=== PATIENT | male | born 1985 | race Caucasian/White ===

== ENCOUNTER 2025-08-14 19:49 | Inpatient (IN) | payer OTHER, SELFPAY ==
[2025-08-14 20:00] VITALS: BP 169/100; PULSE 98; RESP 16; TEMP 36.9; O2SAT 99
[2025-08-14 20:49] VITALS: BP 169/100
[2025-08-14 21:31] VITALS: BMI 32.2
--- OUTSIDE RECORDS SUMMARY | 2025-08-14 22:42 | XMS_ITS | Encounter Summary ---
Author Organization [facility] Address [address] [place] [address] Care Team Providers Care Derrick Boat Leverman Name Role Phone Mayte Wright Primary Care Provider [phone] Encounter Details Date Type Department Care Team (Late st Contact Info) Description 01/05/2024 Community Orders [facility] Epic[facility] Link [address] [place] [address] Mayra Gonzalez MD [address] [place] [address] Decreased visual acuity (Primary Dx) Social History Tobacco Use Types Packs/Day Years Used Date Smoking Tobacco: Every Day Cigarettes Smokeless Tobacco: Never Alcohol Use Standard Drinks/Week Comments Not Currently 0 (1 standard drink = 0.6 oz pur e alcohol) Sex and Gender Information Value Date Recorded Sex Assigned at Not on file Legal Sex Male 11:37 PM EDT Gender Identity Not on file Sexual Orientation Not on file documented as of this encounter Plan of Treatment Not on file documented as of this encounter Visit Diagnoses Diagnosis Decreased visual acuity- Primary documented in this encounter Care Teams Derrick Boat Leverman Relationship Specialty Start Date End Date Mayte Wright [address] [place] [address] PCP - General 07/13/22 documented as of this encounter
--- OUTSIDE RECORDS SUMMARY | 2025-08-14 22:42 | XMS_ITS | Clinical Summary ---
Author Organization [facility] Address [address] [place] [address] Care Team Providers Care Bike Designer Name Role Phone Mayte Wright Primary Care Provider [phone] Allergies Active Allergy Reactions Criticality Noted Date Comments Gabapentin Unknown 07/13/2022 Phenobarbital Unknown 07/13/2022 Sulfa (Sulfonamide Antibiotics) Unknown 06/25 Ondansetron Hcl Unknown 07/13/2022 Medications HYDROcodone-franko taminophen (NORCO) 5-325 mg tablet Take 1-2 tablets by mouth every 6 hours as needed for pain. (Note to pharmacy: Partial fill upon patient request.) 10 tablet 2 Active ALPRAZolam (XANAX) 0.5 mg tablet alprazolam 0.5 mg tablet Active cloNIDine (CATAPRES) 0.1 mg tablet SMARTSI Tablet(s) By Mouth 4 Times Daily PRN Active gabapentin (NEURONTIN) 100 mg capsule 4 Active lamoTRIgine (LaMICtal) 100 mg tablet 4 Active nicotine (NICODERM CQ) 21 mg/24 hr patch nicotine 21 mg/24 hr daily transdermal patch Active nicotine (NICODERM CQ) 14 mg/24 hr patch daily. Active LORazepam (ATIVAN) 0.5 mg tablet lorazepam 0.5 mg tablet Active QUEtiapine (SEROquel) 50 mg tablet quetiapine 50 mg tablet Active risperiDONE (RisperDAL) 0.5 mg tablet risperidone 0.5 mg tablet Active Social History Tobacco Use Types Packs/Day Years Used Date Smoking Tobacco: Every Day Cigarettes Smokeless Tobacco: Never Tobacco Cessation:Ready to Q uit: Not Asked; Counseling Given: Not Answered Alcohol Use Standard Drinks/Week Comments Not Currently 0 (1 standard drink = 0.6 oz pur e alcohol) Sex and Gender Information Value Date Recorded Sex Assigned at Not on file Legal Sex Male 11:37 PM EDT Gender Identity Not on file Sexual Orientation Not on file Last Filed Vital Signs Vital Sign Reading Time Taken Comments Blood Pressure 143/107 07/16/2022 5:16 PM EDT Pulse 131 07/16/2022 5:16 PM EDT Temperature 37 C (98.6 F) 07/16/2022 5:16 PM EDT Respiratory Rate 20 07/16/2022 5:16 PM EDT Oxygen Saturation 95% 07/16/2022 5:16 PM EDT Inhaled Oxygen Concentration - - Weight 113.4 kg (250 lb) 07/16/2022 5:16 PM EDT Height 182.9 cm (6') 07/16/2022 5:16 PM EDT Body Mass Index 33.91 07/16/2022 5:16 PM EDT Plan of Treatment Health Maintenance Due Date Last Done Comments HIV Screening 1984 Hepatitis C Screening 1984 Varicella Vaccines (1 of 2 - 13+ 2-dose series) 1997 Hepatitis B Vaccines (1 of 3 - 19+ 3-dose series) 2003 Pneumococcal Vaccine: Pediat lashonda (0-5 Years) and At-Risk Patients (6-50 Years) (1 of 2 - PCV) 2003 DTaP,Tdap,and Td Vaccines (2 - Td or Tdap) 08/13/2024 08/13/2014 Alcohol/Substance Use Screening 10/24/2024 Depression Screening and Follow-Up 10/24/2024 Social Drivers of Health Annual Screening 10/24/2024 COVID-19 Vaccine (2 - 2024- season) 06/24/202505/2021 Influenza Vaccine (#1) 2025 09/21/2017, 2013 RSV Vaccine (60+ years old a nd patients) (1 - 1-dose 75+ series) 2059 Insurance [facility] MEDICA[employer] Care Teams Bike Designer Relationship Specialty Start Date End Date Mayte Wright [address] [place] [id number] PCP - General 07/13/22
--- NOTE | 2025-08-15 01:18 | PC.NURSE ---
Pt is a 40-y/o male with a history of polysubstance-use disorder, seizure disorder, chronic eczema, ADHD, IBS, GERD, chronic HCV infection, and priapism, who was admitted to M3 from [facility] at 20:00 on a CV. Precipitants of this admission include having passive SI with no plan or intent. Initially presented to the ED after having a 24hr + penile erection ( priapism ) and was subsequently admitted for shunt surgery. Later on pt reported vague SI and was found to be IPLOC. Some stressors include recent brief recurrence on cocaine and fentanyl and housing issues as he currently lives with a roommate, but would rather be living with his fiance. Pt recently got back together with the fiance and it has been tough as pt states she uses drugs and doesn't get along with his mom. Pt on 130mg methadone which he obtains from [facility] in [place]. 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 Skin check completed and found bilateral psoriasis/eczema in bilateral elbows and knees, as well as on face. Utox (+) fentanyl, cocaine & methadone (prescribed). Pt denies SI/HI/AH/VH currently and states he feels safe on the unit. He stated he has had one incident of self harm via cutting his wrists in the past but is able to maintain safe behaviors while in the hospital. He declined the flu vaccine and declined meeting with the ACS team as he does not believe he needs to despite his recent recurrence. He has several medication allergies. Per N2N pt received 2mg dilaudid for pain PO @17:37 ON 08/14/2025 for c/o pain at surgical site. He continues to c/o pain and T.O order for Tylenol 975mg were entered per psychiatrist EL. BP was elevated 160/100, hospitalist notified and new order for PRN 0.5 clonidine if SBP >160 entered & administered with good effect.
--- NOTE | 2025-08-15 01:54 | PC.ADMIT ---
Addendum entered by Marcelle Barrios RN 08/15/25 02:47: 0.1 mg Clonidine (not 0.5) ordered & administered with good effect. New BP 115/59. Addendum entered by Marcelle Barrios RN 08/15/25 01:56: Last methadone dose was on 08/12/2025 - 130mg per [facility] documentation. Original Note: Pt is a 40-y/o male with a history of polysubstance-use disorder, seizure disorder, chronic eczema, ADHD, IBS, GERD, chronic HCV infection, and priapism, who was admitted to M3 from [facility] at 20:00 on a CV. Precipitants of this admission include having passive SI with no plan or intent. Initially presented to the ED after having a 24hr + penile erection ( priapism ) and was subsequently admitted for shunt surgery. Later on pt reported vague SI and was found to be IPLOC. Some stressors include recent brief recurrence on cocaine and fentanyl and housing issues as he currently lives with a roommate, but would rather be living with his fiance. Pt recently got back together with the fiance and it has been tough as pt states she uses drugs and doesn't get along with his mom. Pt on 130mg methadone which he obtains from [facility] in [place]. 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 Skin check completed and found bilateral psoriasis/eczema in bilateral elbows and knees, as well as on face. Utox (+) fentanyl, cocaine & methadone (prescribed). Pt denies SI/HI/AH/VH currently and states he feels safe on the unit. He stated he has had one incident of self harm via cutting his wrists in the past but is able to maintain safe behaviors while in the hospital. He declined the flu vaccine and declined meeting with the ACS team as he does not believe he needs to despite his recent recurrence. He has several medication allergies. Per N2N pt received 2mg dilaudid for pain PO @17:37 ON 08/14/2025 for c/o pain at surgical site. He continues to c/o pain and T.O order for Tylenol 975mg were entered per psychiatrist EL. BP was elevated 160/100, hospitalist notified and new order for PRN 0.5 clonidine if SBP >160 entered & administered with good effect.
[2025-08-15 02:39] VITALS: BP 115/59
--- NOTE | 2025-08-15 06:30 | HE.PHANOTE ---
RE METHADONE Patients methadone verification form has been received by pharmacy. Patient has been confirmed to have 130 mg of methadone daily. Patient is dosed with [facility] [phone], information confirmed by Emily CROW. Last dose was 130 mg on 08/12/25
[2025-08-15 07:00] VITALS: BMI 34.7
[2025-08-15] MEDS: methADONE HCl 20 MG/2 ML ORAL.CONC 130 MG PO (08:04)
[2025-08-15 08:15] VITALS: BP 150/85; PULSE 65; RESP 20; TEMP 36.7; O2SAT 98
--- NOTE | 2025-08-15 08:21 | HO.PM.IMCN ---
History of Present Illness Data of Consult Service Date: 08/15/25 Primary Care Provider: Mayte Soliz MD [facility] Reason for consult: Medical consult 40-year-old male with past medical history of polysubstance use disorder on methadone, cocaine use disorder, depression, eczema, ADHD, GERD presented to the ED with priapism and was admitted for surgical treatment. Subsequently expressed suicide ideation and was found by crisis and deemed to be appropriate for admission. His U tox was positive for methadone, fentanyl and cocaine, BAL negative. On exam patient reports that he has no medical concerns. Patient reports that he was initially admitted for priapism, had an episode of priapism 1 month prior, this episode he waited to come to the emergency room and required OR intervention. He declined a piece dyeing machine tender for examination, on examination, tip of penis is noted to have 2 healing incisions without evidence of infection, with moderate amount of bruising at base of penis. No drainage, no warmth, no evidence of infection. He otherwise feels well without any complaints. Review of Systems Review of Systems: Denies any shortness of breath, chest pain, headaches, dysuria, abdominal pain or discomfort, nausea, vomiting or diarrhea. Denies fever or chills. PMFSH Social History Household Members: Other Household Members Other:: roommate Housing: Apartment Do you presently have visiting nurse or other home services: No Patient Tobacco Use Status: Current everyday Tobacco user Tobacco use type: Cigarette Cigarette Packs Per Day: 0.5 Cigarettes Per Day: 10.0 Years Smoked: 10 Smoked in Last 30 Days: Yes Frequency of e-Cigarette/Vaping Use: daily Patient Interested in Nicotine Replacement: Yes Patient Given Instructions on How to Stop Smoking: Yes Date Education Initiated: 08/14/25 Second Hand Smoke Exposure: No Currently Displaying Signs/Symptoms of Drug Intoxication Withdrawal: No Have you been hit, kicked, punched, or otherwise hurt by someone within the past year? If so, by whom?: No Do you feel safe in your current relationship?: Yes Is there a partner from a previous relationship who is making you feel unsafe now?: No Are you made to feel afraid or neglected: No Spiritual Healthcare Practices: denies Denominational Healthcare Practices: denies Cultural Healthcare Practices: denies Advance Directives: No Advance Directives Information Provided: Yes Do you have thoughts of harming others: None Do you have a plan to hurt others: No Plan Recently lost weight without trying: No How much weight loss: Not applicable Eating poorly because of decreased appetite: No Nutrition screen score: 0 Nutrition Risks: No Nutritional Risk Poor oral hygiene: No service: No Sexual orientation: Straight/Heterosexual Meds Allergies Allergy/AdvReac Type Severity Reaction Status Date / Time lisdexamfetamine (From Allergy Unknown Verified 08/14/25 20:37 Vyvanse) ondansetron (From Zofran) Allergy Unknown Verified 08/14/25 20:37 phenobarbital Allergy Unknown Verified 08/14/25 20:37 Sulfa (Sulfonamide Allergy Unknown Verified 08/14/25 20:37 Antibiotics) vancomycin Allergy Unknown Verified 08/14/25 20:37 Active Medications: Current Medications Acetaminophen (Acetaminophen 325 Mg Tablet) 650 mg PO Q6H PRN PRN Reason: Headache/Pain, Scale 1-10 Al Hydroxide/Mg Hydroxide (Magnesium Hydrox/Alum Hydrox 30 Ml Oral.Susp) 30 ml PO Q6H PRN PRN Reason: Heartburn/Nausea Clonazepam (Clonazepam 0.5 Mg Tablet) 0.5 mg PO TID [facility] Last Admin: 08/14/25 22:26 Dose: 0.5 mg Clonidine HCl (Clonidine Hcl 0.1 Mg Tablet) 0.1 mg PO BID PRN; Protocol PRN Reason: SBP > 160 Last Admin: 08/14/25 20:49 Dose: 0.1 mg Gabapentin (Gabapentin 300 Mg Capsule) 300 mg PO TID [facility] Last Admin: 08/14/25 22:25 Dose: 300 mg Hydroxyzine HCl (Hydroxyzine Hcl 25 Mg Tablet) 25 mg PO Q6H PRN PRN Reason: mild anxiety Magnesium Hydroxide (Milk Of Magnesia 30 Ml Oral.Susp) 30 ml PO DAILY PRN PRN Reason: Constipation Methadone HCl (Methadone Hcl 20 Mg/2 Ml Oral.Conc) 130 mg PO DAILY [facility] Last Admin: 08/15/25 08:04 Dose: 130 mg Nicotine (Nicotine 21 Mg Patch.Td24) 21 mg TRANSDERMA DAILY PRN PRN Reason: smoking cessation Nicotine Polacrilex (Nicotine Polacrilex 2 Mg Gum) 4 mg BUCCAL Q2H PRN PRN Reason: Nicotine Cravings Olanzapine (Olanzapine 5 Mg Tablet) 5 mg PO TID PRN PRN Reason: agitation Quetiapine Fumarate (Quetiapine Fumarate 300 Mg Tablet) 300 mg PO BEDTIME KEV Last Admin: 08/14/25 22:26 Dose: 300 mg Trazodone HCl (Trazodone Hcl 50 Mg Tablet) 50 mg PO BEDTIME MRX1 PRN PRN Reason: Insomnia Home Medications ?Medication ?Instructions ?Recorded ?Confirmed ?Last Taken ?Type clonazepam 0.5 mg tablet (Klonopin) 0.5 mg PO TID 08/14/25 08/14/25 08/14/25 14:00 History 0.5 dextroamphetamine-amphetamine 30 1 tab PO BID 08/14/25 08/14/25 08/12/25 08:00 History mg tablet gabapentin 300 mg capsule 300 mg PO TID 08/14/25 08/14/25 08/14/25 14:00 History quetiapine 300 mg tablet 300 mg PO BEDTIME 08/14/25 08/14/25 08/13/25 21:00 History methadone 130 mg PO DAILY 08/15/25 08/15/25 08/12/25 07:00 History 130 mg Physical Exam Vital Signs and Narrative: Vital Signs: Last Vital Signs Temp 98.5 F 08/14/25 20:00 Pulse 98 08/14/25 20:00 Resp 16 08/14/25 20:00 BP 115/59 L 08/15/25 02:39 Pulse Ox 99 08/14/25 20:00 O2 Del Method Room Air 08/14/25 20:00 BMI result Body Mass Index 32.2 Alert and oriented X3, able to give good history. Neuro: CN II-X11 intact, no deficits, visual acuity intact EYES: PERRLA, EOM intact ENT: Hearing intact, MMM. Cardiac: S1 S2 RRR, No ectopy Pulmonary: lungs clear to auscultation, No increased WOB. Abdominal: BS active in all 4 quadrants, no guarding or tenderness MSK: Strength 5/5 upper and lower extremities : Moderate amount of bruising at base of penis, 2 incisions to the right lateral tip of penis and 1 injection site at left lateral tip. No evidence of infection. Extremities: No edema in lower extremities, PT and DP pulses palpable +2 Psych: Mood stable, calm and cooperative. Skin: Warm and dry, Intact Results Labs 08/15/25 07:59 Assessment and Plan (1) Priapism: Status: Acute Plan 40-year-old male with past medical history as listed below admitted to inpatient psych for further care after expressing suicidal ideation. Patient initially presented to the ED with priapism which was treated. Polysubstance use disorder on methadone, cocaine use disorder, depression, ADHD Treatment per psychiatric team Eczema Patient uses [id number] hydrocortisone Priaprism Required surgical intervention Educated patient regarding signs and symptoms to report that may indicate infection. GERD Stable no symptoms Thank you for allowing me to participate in the care of this patient. Will follow with you, please notify medical provider with any changes in condition or concerns.
[2025-08-15 08:22] LABS: Total Hemoglobin (HGBA1C) 3378.6498 umol/L
[2025-08-15 08:29] LABS: Alanine Aminotransferase 26 U/L (0-40); Albumin Level 3.9 g/dL (3.5-5.0); Alkaline Phosphatase 47 U/L (39-117); Anion Gap 11 (12-20); Aspartate Amino Transferase 22 U/L (5-37); Blood Urea Nitrogen 8 mg/dL (9-16); Calcium 8.6 mg/dL (8.4-10.2); Carbon Dioxide 30 mmol/L (22-29); Chloride 107 mmol/L (96-108); Cholesterol 123 mg/dL (<200); Creatinine Clr Calc Pharmacy 189.2; Estimated Glomerular Filt Rate > 60; HDL Cholesterol 35 mg/dL (>40); Potassium 4.1 mmol/L (3.3-5.1); Sodium 144 mmol/L (135-145); Total Protein 6.3 g/dL (6.5-8.0); Triglycerides 82 mg/dL (<150)
--- NOTE | 2025-08-15 09:44 | HO.PSYADMNOT ---
HPI Date of Service: 08/15/25 Chief Complaint: depression, unspecified Sources of Information: patient interviewed, chart reviewed and crisis/core team assessment reviewed HPI Subjective Notes: [place] Warning and Conditional Voluntary Narrative: Patient is a 40 year old male with hx of MDD, cocaine use d/o, opioid use d/o, who self presented to ER due to priapism and was admitted for surgical treatment. When medically cleared, patient expressed suicidal ideation and increased depression secondary to life stressors. Per crisis report, self-reported history of bipolar disorder. Patient presented to ER with priapism, admitted for surgical treatment. Patient reports suicidal ideation without plan. He reported several stressors that led to current presentation including relationship difficulties, housing stress, relapsed and medical difficulties. Patient report increased depression after getting in contact with his ex-fiance; Over the last 5 days depression has worsened to the point he was unable to get out of bed. Due to his depression, he waited 24 hours before going to hospital for his priapism. patient reports he uses cocaine when feeling depressed. He describes his manic episodes as being up for several days feeling exhausted body passes out . He states it is not related to cocaine use because the amount he uses is too small of an amount . History of self-harming via cutting. denies hx of SA. History of inpatient psychiatric hospitalizations. Utox positive for methadone, fentanyl and cocaine. During admission assessment, patient presents alert and oriented x3. Calm and cooperative. Patient reports feeling depressed; patient stated, I had priapism and did not go to the ER right away. I waited 20 hours before going. I told them I was depressed and just lying in bed. I'm going through stuff with my fiancee and my sister tried to commit suicide 2 weeks ago . Patient reports he has not been taking Prozac and Lamictal for the last year. Patient stated, it has been over a year since I came off of it. It used to be helpful . Patient currently denies SI/HI/VH/AH. Patient reports that he would like to be restarted on Prozac and Lamictal. Past Psychiatric History: History of multiple inpatient psychiatric hospitalizations. History of SIB via cutting Denies history of SA. Prescriber: Kamaljit Smith ([place]) Therapist: Shannan Knott at methadone clinic Medical Evaluation Reviewed: Yes PMFSH Family History: depression Social History: Lives with friend. Engaged. 10 year old daughter who lives with biological mother. 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 Substance History: hx of opioid use. Patient reports using cocaine. Trauma History: yes Diagnostics Vital Signs (24Hr): Vital Signs - 24 hr 08/14/25 20:00 08/14/25 20:49 08/15/25 02:39 Temperature 98.5 F Pulse Rate 98 Respiratory Rate 16 Blood Pressure 169/100 H 169/100 H 115/59 L Pulse Oximetry 99 Oxygen Delivery Method Room Air BMI result Body Mass Index 32.2 Labs 08/15/25 07:59 Labs: Laboratory Results - last 48 hr 08/15/25 07:59 Sodium 144 Potassium 4.1 Chloride 107 Carbon Dioxide 30 H Anion Gap 11 L BUN 8 L Creatinine 0.67 Estim Creat Clear Calc 189.2 Estimated GFR > 60 Random Glucose 93 Estimat Average Glucose 117 Hemoglobin A1c % 5.7 Calcium 8.6 Total Bilirubin 0.2 AST 22 ALT 26 Alkaline Phosphatase 47 Total Protein 6.3 L Albumin 3.9 Triglycerides 82 Cholesterol 123 LDL Cholesterol, Calc 72 HDL Cholesterol 35 L TSH 2.56 Meds/Allergies Meds Home Medications ?Medication ?Instructions ?Recorded ?Confirmed ?Type clonazepam 0.5 mg tablet (Klonopin) 0.5 mg PO TID 08/14/25 08/14/25 History dextroamphetamine-amphetamine 30 1 tab PO BID 08/14/25 08/14/25 History mg tablet gabapentin 300 mg capsule 300 mg PO TID 08/14/25 08/14/25 History quetiapine 300 mg tablet 300 mg PO BEDTIME 08/14/25 08/14/25 History methadone 130 mg PO DAILY 08/15/25 08/15/25 History Allergies Allergies Allergy/AdvReac Type Severity Reaction Status Date / Time lisdexamfetamine (From Allergy Unknown Verified 08/14/25 20:37 Vyvanse) ondansetron (From Zofran) Allergy Unknown Verified 08/14/25 20:37 phenobarbital Allergy Unknown Verified 08/14/25 20:37 Sulfa (Sulfonamide Allergy Unknown Verified 08/14/25 20:37 Antibiotics) vancomycin Allergy Unknown Verified 08/14/25 20:37 Mental Status Exam Mental Status Exam Patient Appearance: Appropriate Patient Orientation: Person, Place, Time and Situation Level of Consciousness: Awake and Alert Patient Behavior: Appropriate, Cooperative and Good Eye Contact Mood Description: Calm and Depressed Affect Description: Calm Ability to Follow Directions: Good Speech Pattern: Clear Memory Description: Intact Hallucinations: None Delusions: Not Present Thought Process: Intact Thought Content: positive for Intact Assessment & Plan Assessment & Plan (1) Bipolar disorder: Status: Acute Code(s): F31.9 - Bipolar disorder, unspecified (2) Cocaine use disorder: Status: Acute Code(s): F14.10 - Cocaine abuse, uncomplicated (3) Opioid use disorder: Status: Acute Code(s): F11.90 - Opioid use, unspecified, uncomplicated Plan Patient is a 40 year old male with hx of MDD, cocaine use d/o, opioid use d/o, who self presented to ER due to priapism and was admitted for surgical treatment. When medically cleared, patient expressed suicidal ideation and increased depression secondary to life stressors. Plan: CV 15 minute safety checks Obtain collateral Continue home medications Encourage groups Discharge planning Patient educated on: diagnosis and medication risk/benefits Reason for continued inpatient stay Substantial Risk for: med/psych decompensation Statement Statement: I have reviewed the history and physical and performed a pertinent examination on my patient. No changes have occurred unless specified. If the History and Physical was not performed prior to admission, the Hospitalist's service will be consulted for completing the admission physical. Time Spent With Patient Time: Total time managing care of this patient today _60___ minutes.
[2025-08-15] MEDS: Amphetamine Mixed Salts 20 MG TABLET 30 MG PO (14:14)
[2025-08-15 19:30] VITALS: BP 159/74; PULSE 82; RESP 16; TEMP 36.2; O2SAT 97
[2025-08-15 20:25] VITALS: BP 175/101
[2025-08-15] MEDS: Hydrocortisone 1 % Cream 28.35 GM TUBE 1 APPL TOPICAL (20:26)
[2025-08-16 07:34] VITALS: BP 132/80; PULSE 69; RESP 18; TEMP 36.7; O2SAT 99
[2025-08-16] MEDS: Amphetamine Mixed Salts 20 MG TABLET 30 MG PO ×2 (08:08→14:08)
[2025-08-16] MEDS: methADONE HCl 20 MG/2 ML ORAL.CONC 130 MG PO (08:08)
--- NOTE | 2025-08-16 09:30 | P.PNPSI_ITS ---
Subjective Subjective Date of Service: 08/16/25 Reason For Visit: depression, unspecified Subjective Notes: Conditional Voluntary Interim History: Active on unit. Feeling anxious and depressed; pt stated, I have a lot going on with my ex. I just need to focus on myself . denies SI/HI/VH/AH. attending groups. per nursing, slept 7 hours. denies side effects from starting Lamictal. continue tx plan. Medication Compliance: Yes Side effects from medications: No Attending Groups: Yes Mental Status Exam Mental Status Exam Narrative: Pt is alert and oriented; behavior is cooperative and calm; dressed in casual attire; mood is described as depressed ; eye contact appropriate; Speech is normal rate, volume and not pressured; thought process is organized; Thought content is on tx; denies SI/HI/VH/AH. Diagnostics Vital Signs (24Hr): Vital Signs - 24 hr 08/15/25 19:30 08/15/25 20:25 08/16/25 07:34 Temperature 97.2 F 98.0 F Pulse Rate 82 69 Respiratory Rate 16 18 Blood Pressure 159/74 H 175/101 H 132/80 Pulse Oximetry 97 99 Oxygen Delivery Method Room Air Room Air BMI result Body Mass Index 34.7 Labs 08/15/25 07:59 Labs: Laboratory Results - last 48 hr 08/15/25 07:59 Sodium 144 Potassium 4.1 Chloride 107 Carbon Dioxide 30 H Anion Gap 11 L BUN 8 L Creatinine 0.67 Estim Creat Clear Calc 189.2 Estimated GFR > 60 Random Glucose 93 Estimat Average Glucose 117 Hemoglobin A1c % 5.7 Calcium 8.6 Total Bilirubin 0.2 AST 22 ALT 26 Alkaline Phosphatase 47 Total Protein 6.3 L Albumin 3.9 Triglycerides 82 Cholesterol 123 LDL Cholesterol, Calc 72 HDL Cholesterol 35 L TSH 2.56 Medications Medications Current Medications Acetaminophen (Acetaminophen 325 Mg Tablet) 650 mg PO Q6H PRN PRN Reason: Headache/Pain, Scale 1-10 Last Admin: 08/15/25 20:21 Dose: 650 mg Al Hydroxide/Mg Hydroxide (Magnesium Hydrox/Alum Hydrox 30 Ml Oral.Susp) 30 ml PO Q6H PRN PRN Reason: Heartburn/Nausea Amphetamine/Dextroamphetamine (Amphetamine Mixed Salts 20 Mg Tablet) 30 mg PO BID@0800,1400 [facility] Last Admin: 08/16/25 08:08 Dose: 30 mg Clonazepam (Clonazepam 0.5 Mg Tablet) 0.5 mg PO TID [facility] Last Admin: 08/16/25 08:08 Dose: 0.5 mg Clonidine HCl (Clonidine Hcl 0.1 Mg Tablet) 0.1 mg PO BID PRN; Protocol PRN Reason: SBP > 160 Last Admin: 08/15/25 20:25 Dose: 0.1 mg Gabapentin (Gabapentin 300 Mg Capsule) 300 mg PO TID [facility] Last Admin: 08/16/25 08:08 Dose: 300 mg Hydrocortisone (Hydrocortisone 1 % Cream 28.35 Gm Tube) 1 appl TOPICAL BID PRN; Protocol PRN Reason: Rash Last Admin: 08/15/25 20:26 Dose: 1 appl Hydroxyzine HCl (Hydroxyzine Hcl 25 Mg Tablet) 25 mg PO Q6H PRN PRN Reason: mild anxiety Ibuprofen (Ibuprofen 600 Mg Tablet) 600 mg PO Q8H PRN PRN Reason: Pain, Moderate(Pain Scale 4-6) Last Admin: 08/15/25 16:42 Dose: 600 mg Lamotrigine (Lamotrigine 25 Mg Tablet) 25 mg PO BEDTIME [facility] Last Admin: 08/15/25 20:21 Dose: 25 mg Magnesium Hydroxide (Milk Of Magnesia 30 Ml Oral.Susp) 30 ml PO DAILY PRN PRN Reason: Constipation Methadone HCl (Methadone Hcl 20 Mg/2 Ml Oral.Conc) 130 mg PO DAILY [facility] Last Admin: 08/16/25 08:08 Dose: 130 mg Nicotine (Nicotine 21 Mg Patch.Td24) 21 mg TRANSDERMA DAILY PRN PRN Reason: smoking cessation Nicotine Polacrilex (Nicotine Polacrilex 2 Mg Gum) 4 mg BUCCAL Q2H PRN PRN Reason: Nicotine Cravings Olanzapine (Olanzapine 5 Mg Tablet) 5 mg PO TID PRN PRN Reason: agitation Last Admin: 08/15/25 20:21 Dose: 5 mg Quetiapine Fumarate (Quetiapine Fumarate 300 Mg Tablet) 300 mg PO BEDTIME [facility] Last Admin: 08/15/25 20:21 Dose: 300 mg Trazodone HCl (Trazodone Hcl 50 Mg Tablet) 50 mg PO BEDTIME MRX1 PRN PRN Reason: Insomnia Allergies Allergies Allergy/AdvReac Type Severity Reaction Status Date / Time lisdexamfetamine (From Allergy Unknown Verified 08/14/25 20:37 Vyvanse) ondansetron (From Zofran) Allergy Unknown Verified 08/14/25 20:37 phenobarbital Allergy Unknown Verified 08/14/25 20:37 Sulfa (Sulfonamide Allergy Unknown Verified 08/14/25 20:37 Antibiotics) vancomycin Allergy Unknown Verified 08/14/25 20:37 Assessment & Plan Assessment & Plan (1) Bipolar disorder: Status: Acute Code(s): F31.9 - Bipolar disorder, unspecified (2) Cocaine use disorder: Status: Acute Code(s): F14.10 - Cocaine abuse, uncomplicated (3) Opioid use disorder: Status: Acute Code(s): F11.90 - Opioid use, unspecified, uncomplicated Plan Patient is a 40 year old male with hx of MDD, cocaine use d/o, opioid use d/o, who self presented to ER due to priapism and was admitted for surgical treatment. When medically cleared, patient expressed suicidal ideation and increased depression secondary to life stressors. Plan: CV 15 minute safety checks Obtain collateral Continue home medications Encourage groups Start: lamictal 25mg PO bedtime Discharge planning 08/16: Active on unit. Feeling anxious and depressed; pt stated, I have a lot going on with my ex. I just need to focus on myself . denies SI/HI/VH/AH. attending groups. per nursing, slept 7 hours. denies side effects from starting Lamictal. continue tx plan. Patient educated on: diagnosis, medication risk/benefits and therapeutic strategies Reason for continued inpatient stay Substantial Risk for: med/psych decompensation Time Spent With Patient Time: Total time managing care of this patient today _20___ minutes.
[2025-08-16] MEDS: Hydrocortisone 1 % Cream 28.35 GM TUBE 1 APPL TOPICAL (11:08)
[2025-08-16 19:13] VITALS: BP 145/85; PULSE 87; RESP 16; TEMP 36.2; O2SAT 98
[2025-08-17] MEDS: methADONE HCl 20 MG/2 ML ORAL.CONC 130 MG PO (07:58)
[2025-08-17 08:00] VITALS: BP 125/67; PULSE 68; RESP 16; TEMP 36.8; O2SAT 97
[2025-08-17] MEDS: Amphetamine Mixed Salts 20 MG TABLET 30 MG PO ×2 (08:00→13:14)
--- NOTE | 2025-08-17 15:16 | HO.PSYCHPN ---
Subjective Subjective Date of Service: 08/17/25 Reason For Visit: depression, unspecified Subjective Notes: Conditional Voluntary Interim History: Active on unit. Patient reports he is starting to feel better ; pt stated, my depression is getting better. I'm trying to not worry about what's going on outside of here . denies SI/HI/VH/AH. continue tx plan. Medication Compliance: Yes Side effects from medications: No Attending Groups: Yes Mental Status Exam Mental Status Exam Narrative: Pt is alert and oriented; behavior is cooperative and calm; dressed in casual attire; mood is described as getting better ; eye contact appropriate; Speech is normal rate, volume and not pressured; thought process is organized; Thought content is on tx/discharge; denies SI/HI/VH/AH. Diagnostics Vital Signs (24Hr): Vital Signs - 24 hr 08/16/25 19:13 08/17/25 08:00 Temperature 97.2 F 98.2 F Pulse Rate 87 68 Respiratory Rate 16 16 Blood Pressure 145/85 H 125/67 Pulse Oximetry 98 97 Oxygen Delivery Method Room Air Room Air BMI result Body Mass Index 34.7 Labs 08/15/25 07:59 Medications Medications Current Medications Acetaminophen (Acetaminophen 325 Mg Tablet) 650 mg PO Q6H PRN PRN Reason: Headache/Pain, Scale 1-10 Last Admin: 08/15/25 20:21 Dose: 650 mg Al Hydroxide/Mg Hydroxide (Magnesium Hydrox/Alum Hydrox 30 Ml Oral.Susp) 30 ml PO Q6H PRN PRN Reason: Heartburn/Nausea Amphetamine/Dextroamphetamine (Amphetamine Mixed Salts 20 Mg Tablet) 30 mg PO BID@0800,1400 [facility] Last Admin: 08/17/25 13:14 Dose: 30 mg Clonazepam (Clonazepam 0.5 Mg Tablet) 0.5 mg PO TID [facility] Last Admin: 08/17/25 14:03 Dose: 0.5 mg Clonidine HCl (Clonidine Hcl 0.1 Mg Tablet) 0.1 mg PO BID PRN; Protocol PRN Reason: SBP > 160 Last Admin: 08/15/25 20:25 Dose: 0.1 mg Gabapentin (Gabapentin 300 Mg Capsule) 300 mg PO TID [facility] Last Admin: 08/17/25 14:03 Dose: 300 mg Hydrocortisone (Hydrocortisone 1 % Cream 28.35 Gm Tube) 1 appl TOPICAL BID PRN; Protocol PRN Reason: Rash Last Admin: 08/16/25 11:08 Dose: 1 appl Hydroxyzine HCl (Hydroxyzine Hcl 25 Mg Tablet) 25 mg PO Q6H PRN PRN Reason: mild anxiety Ibuprofen (Ibuprofen 600 Mg Tablet) 600 mg PO Q8H PRN PRN Reason: Pain, Moderate(Pain Scale 4-6) Last Admin: 08/15/25 16:42 Dose: 600 mg Lamotrigine (Lamotrigine 25 Mg Tablet) 25 mg PO BEDTIME [facility] Last Admin: 08/16/25 20:11 Dose: 25 mg Magnesium Hydroxide (Milk Of Magnesia 30 Ml Oral.Susp) 30 ml PO DAILY PRN PRN Reason: Constipation Methadone HCl (Methadone Hcl 20 Mg/2 Ml Oral.Conc) 130 mg PO DAILY [facility] Last Admin: 08/17/25 07:58 Dose: 130 mg Nicotine (Nicotine 21 Mg Patch.Td24) 21 mg TRANSDERMA DAILY PRN PRN Reason: smoking cessation Nicotine Polacrilex (Nicotine Polacrilex 2 Mg Gum) 4 mg BUCCAL Q2H PRN PRN Reason: Nicotine Cravings Last Admin: 08/17/25 14:04 Dose: 4 mg Olanzapine (Olanzapine 5 Mg Tablet) 5 mg PO TID PRN PRN Reason: agitation Last Admin: 08/17/25 14:04 Dose: 5 mg Quetiapine Fumarate (Quetiapine Fumarate 300 Mg Tablet) 300 mg PO BEDTIME [facility] Last Admin: 08/16/25 20:11 Dose: 300 mg Trazodone HCl (Trazodone Hcl 50 Mg Tablet) 50 mg PO BEDTIME MRX1 PRN PRN Reason: Insomnia Allergies Allergies Allergy/AdvReac Type Severity Reaction Status Date / Time lisdexamfetamine (From Allergy Unknown Verified 08/14/25 20:37 Vyvanse) ondansetron (From Zofran) Allergy Unknown Verified 08/14/25 20:37 phenobarbital Allergy Unknown Verified 08/14/25 20:37 Sulfa (Sulfonamide Allergy Unknown Verified 08/14/25 20:37 Antibiotics) vancomycin Allergy Unknown Verified 08/14/25 20:37 Assessment & Plan Assessment & Plan (1) Bipolar disorder: Status: Acute Code(s): F31.9 - Bipolar disorder, unspecified (2) Cocaine use disorder: Status: Acute Code(s): F14.10 - Cocaine abuse, uncomplicated (3) Opioid use disorder: Status: Acute Code(s): F11.90 - Opioid use, unspecified, uncomplicated Plan Patient is a 40 year old male with hx of MDD, cocaine use d/o, opioid use d/o, who self presented to ER due to priapism and was admitted for surgical treatment. When medically cleared, patient expressed suicidal ideation and increased depression secondary to life stressors. Plan: CV 15 minute safety checks Obtain collateral Continue home medications Encourage groups Start: lamictal 25mg PO bedtime Discharge planning 08/16: Active on unit. Feeling anxious and depressed; pt stated, I have a lot going on with my ex. I just need to focus on myself . denies SI/HI/VH/AH. attending groups. per nursing, slept 7 hours. denies side effects from starting Lamictal. continue tx plan. 08/17: Active on unit. Patient reports he is starting to feel better ; pt stated, my depression is getting better. I'm trying to not worry about what's going on outside of here . denies SI/HI/VH/AH. continue tx plan. Patient educated on: diagnosis, medication risk/benefits and therapeutic strategies Reason for continued inpatient stay Substantial Risk for: med/psych decompensation Time Spent With Patient Time: Total time managing care of this patient today _15___ minutes.
[2025-08-17 20:00] VITALS: BP 146/79; PULSE 96; RESP 16; TEMP 36.6; O2SAT 97
[2025-08-18] MEDS: methADONE HCl 20 MG/2 ML ORAL.CONC 130 MG PO (07:57)
[2025-08-18 08:00] VITALS: BP 136/78; PULSE 74; RESP 18; TEMP 36.7; O2SAT 97
[2025-08-18] MEDS: Amphetamine Mixed Salts 20 MG TABLET 30 MG PO ×2 (08:22→13:09)
[2025-08-18] MEDS: Nicotine 21 MG PATCH.TD24 TRANSDERMA (10:36)
--- NOTE | 2025-08-18 12:52 | P.PNPSI_ITS ---
Subjective Subjective Date of Service: 08/18/25 Reason For Visit: depression, unspecified Subjective Notes: Conditional Voluntary Interim History: Active on unit. social with peers. Patient reports feeling anxious and getting back to work and life ; denies SI/HI/VH/AH. denies any issues at this time. continue tx plan. Medication Compliance: Yes Side effects from medications: No Attending Groups: Yes Mental Status Exam Mental Status Exam Narrative: Pt is alert and oriented; behavior is cooperative and calm; dressed in casual attire; mood is described as anxious ; eye contact appropriate; Speech is normal rate, volume and not pressured; thought process is organized; Thought content is on discharge; denies SI/HI/VH/AH. Diagnostics Vital Signs (24Hr): Vital Signs - 24 hr 08/17/25 20:00 08/18/25 08:00 Temperature 97.9 F 98.0 F Pulse Rate 96 74 Respiratory Rate 16 18 Blood Pressure 146/79 H 136/78 Pulse Oximetry 97 97 Oxygen Delivery Method Room Air Room Air BMI result Body Mass Index 34.7 Labs 08/15/25 07:59 Medications Medications Current Medications Acetaminophen (Acetaminophen 325 Mg Tablet) 650 mg PO Q6H PRN PRN Reason: Headache/Pain, Scale 1-10 Last Admin: 08/18/25 06:31 Dose: 650 mg Al Hydroxide/Mg Hydroxide (Magnesium Hydrox/Alum Hydrox 30 Ml Oral.Susp) 30 ml PO Q6H PRN PRN Reason: Heartburn/Nausea Amphetamine/Dextroamphetamine (Amphetamine Mixed Salts 20 Mg Tablet) 30 mg PO BID@0800,1400 [facility] Last Admin: 08/18/25 08:22 Dose: 30 mg Clonazepam (Clonazepam 0.5 Mg Tablet) 0.5 mg PO TID [facility] [place] Last Admin: 08/18/25 08:22 Dose: 0.5 mg Clonidine HCl (Clonidine Hcl 0.1 Mg Tablet) 0.1 mg PO BID PRN; Protocol PRN Reason: SBP > 160 Last Admin: 08/15/25 20:25 Dose: 0.1 mg Gabapentin (Gabapentin 300 Mg Capsule) 300 mg PO TID [facility] [place] Last Admin: 08/18/25 08:22 Dose: 300 mg Hydrocortisone (Hydrocortisone 1 % Cream 28.35 Gm Tube) 1 appl TOPICAL BID PRN; Protocol PRN Reason: Rash Last Admin: 08/16/25 11:08 Dose: 1 appl Hydroxyzine HCl (Hydroxyzine Hcl 25 Mg Tablet) 25 mg PO Q6H PRN PRN Reason: mild anxiety Ibuprofen (Ibuprofen 600 Mg Tablet) 600 mg PO Q8H PRN PRN Reason: Pain, Moderate(Pain Scale 4-6) Last Admin: 08/15/25 16:42 Dose: 600 mg Lamotrigine (Lamotrigine 25 Mg Tablet) 25 mg PO BEDTIME [facility] Last Admin: 08/17/25 20:01 Dose: 25 mg Magnesium Hydroxide (Milk Of Magnesia 30 Ml Oral.Susp) 30 ml PO DAILY PRN PRN Reason: Constipation Methadone HCl (Methadone Hcl 20 Mg/2 Ml Oral.Conc) 130 mg PO DAILY [facility] Last Admin: 08/18/25 07:57 Dose: 130 mg Nicotine (Nicotine 21 Mg Patch.Td24) 21 mg TRANSDERMA DAILY PRN PRN Reason: smoking cessation Last Admin: 08/18/25 10:36 Dose: 21 mg Nicotine Polacrilex (Nicotine Polacrilex 2 Mg Gum) 4 mg BUCCAL Q2H PRN PRN Reason: Nicotine Cravings Last Admin: 08/18/25 08:49 Dose: 4 mg Olanzapine (Olanzapine 5 Mg Tablet) 5 mg PO TID PRN PRN Reason: agitation Last Admin: 08/18/25 08:50 Dose: 5 mg Quetiapine Fumarate (Quetiapine Fumarate 300 Mg Tablet) 300 mg PO BEDTIME [facility] Last Admin: 08/17/25 20:01 Dose: 300 mg Trazodone HCl (Trazodone Hcl 50 Mg Tablet) 50 mg PO BEDTIME MRX1 PRN PRN Reason: Insomnia Allergies Allergies Allergy/AdvReac Type Severity Reaction Status Date / Time lisdexamfetamine (From Allergy Unknown Verified 08/14/25 20:37 Vyvanse) ondansetron (From Zofran) Allergy Unknown Verified 08/14/25 20:37 phenobarbital Allergy Unknown Verified 08/14/25 20:37 Sulfa (Sulfonamide Allergy Unknown Verified 08/14/25 20:37 Antibiotics) vancomycin Allergy Unknown Verified 08/14/25 20:37 Assessment & Plan Assessment & Plan (1) Bipolar disorder: Status: Acute Code(s): F31.9 - Bipolar disorder, unspecified (2) Cocaine use disorder: Status: Acute Code(s): F14.10 - Cocaine abuse, uncomplicated (3) Opioid use disorder: Status: Acute Code(s): F11.90 - Opioid use, unspecified, uncomplicated Plan Patient is a 40 year old male with hx of MDD, cocaine use d/o, opioid use d/o, who self presented to ER due to priapism and was admitted for surgical treatment. When medically cleared, patient expressed suicidal ideation and increased depression secondary to life stressors. Plan: CV 15 minute safety checks Obtain collateral Continue home medications Encourage groups Start: lamictal 25mg PO bedtime Discharge planning 08/16: Active on unit. Feeling anxious and depressed; pt stated, I have a lot going on with my ex. I just need to focus on myself . denies SI/HI/VH/AH. attending groups. per nursing, slept 7 hours. denies side effects from starting Lamictal. continue tx plan. 08/17: Active on unit. Patient reports he is starting to feel better ; pt stated, my depression is getting better. I'm trying to not worry about what's going on outside of here . denies SI/HI/VH/AH. continue tx plan. 08/18: Active on unit. social with peers. Patient reports feeling anxious and getting back to work and life ; denies SI/HI/VH/AH. denies any issues at this time. continue tx plan. Patient educated on: diagnosis and medication risk/benefits Reason for continued inpatient stay Substantial Risk for: med/psych decompensation Time Spent With Patient Time: Total time managing care of this patient today _20___ minutes.
[2025-08-18] MEDS: Lidocaine 4 % Patch ADH..PATCH 1 PATCH TRANSDERMA (14:08)
[2025-08-18] MEDS: Hydrocortisone 1 % Cream 28.35 GM TUBE 1 APPL TOPICAL ×2 (14:12→20:00)
[2025-08-18 20:00] VITALS: BP 139/84; PULSE 87; RESP 16; TEMP 35.9; O2SAT 97
[2025-08-19] MEDS: Nicotine Polacrilex Lozenge 2 MG LOZENGE BUCCAL ×3 (02:09→12:27)
[2025-08-19] MEDS: methADONE HCl 20 MG/2 ML ORAL.CONC 130 MG PO (07:58)
[2025-08-19 08:00] VITALS: BP 140/84; PULSE 79; RESP 20; TEMP 36.9; O2SAT 98
[2025-08-19] MEDS: Amphetamine Mixed Salts 20 MG TABLET 30 MG PO ×2 (08:12→13:10)
[2025-08-19] MEDS: Nicotine 21 MG PATCH.TD24 TRANSDERMA (09:04)
--- NOTE | 2025-08-19 10:03 | HO.PSYCHPN ---
Subjective Subjective Date of Service: 08/19/25 Reason For Visit: depression, unspecified Subjective Notes: Conditional Voluntary Interim History: Active on unit. social with peers. Patient reports feeling better today; pt stated, I'm still having some depression and anxious but it feels like it's getting better . patient denies SI/HI/VH/AH. He reports he plans on following up with his outpatient providers. Medication Compliance: Yes Side effects from medications: No Attending Groups: Yes Mental Status Exam Mental Status Exam Narrative: Pt is alert and oriented; behavior is cooperative and calm; dressed in casual attire; mood is described as anxious ; eye contact appropriate; Speech is normal rate, volume and not pressured; thought process is organized; Thought content is on discharge; denies SI/HI/VH/AH. Diagnostics Vital Signs (24Hr): Vital Signs - 24 hr 08/18/25 20:00 08/19/25 08:00 Temperature 96.7 F L 98.4 F Pulse Rate 87 79 Respiratory Rate 16 20 Blood Pressure 139/84 140/84 H Pulse Oximetry 97 98 Oxygen Delivery Method Room Air Room Air BMI result Body Mass Index 34.7 Labs 08/15/25 07:59 Medications Medications Current Medications Acetaminophen (Acetaminophen 325 Mg Tablet) 650 mg PO Q6H PRN PRN Reason: Headache/Pain, Scale 1-10 Last Admin: 08/18/25 14:08 Dose: 650 mg Al Hydroxide/Mg Hydroxide (Magnesium Hydrox/Alum Hydrox 30 Ml Oral.Susp) 30 ml PO Q6H PRN PRN Reason: Heartburn/Nausea Amphetamine/Dextroamphetamine (Amphetamine Mixed Salts 20 Mg Tablet) 30 mg PO BID@0800,1400 [facility] Last Admin: 08/19/25 08:12 Dose: 30 mg Clonazepam (Clonazepam 0.5 Mg Tablet) 0.5 mg PO TID [facility] Last Admin: 08/19/25 08:12 Dose: 0.5 mg Clonidine HCl (Clonidine Hcl 0.1 Mg Tablet) 0.1 mg PO BID PRN; Protocol PRN Reason: SBP > 160 Last Admin: 08/15/25 20:25 Dose: 0.1 mg Gabapentin (Gabapentin 300 Mg Capsule) 300 mg PO TID [facility] Last Admin: 08/19/25 08:12 Dose: 300 mg Hydrocortisone (Hydrocortisone 1 % Cream 28.35 Gm Tube) 1 appl TOPICAL BID PRN; Protocol PRN Reason: Rash Last Admin: 08/18/25 20:00 Dose: 1 appl Hydroxyzine HCl (Hydroxyzine Hcl 25 Mg Tablet) 25 mg PO Q6H PRN PRN Reason: mild anxiety Ibuprofen (Ibuprofen 600 Mg Tablet) 600 mg PO Q8H PRN PRN Reason: Pain, Moderate(Pain Scale 4-6) Last Admin: 08/18/25 13:09 Dose: 600 mg Lamotrigine (Lamotrigine 25 Mg Tablet) 25 mg PO BEDTIME [facility] Last Admin: 08/18/25 19:59 Dose: 25 mg Lidocaine (Lidocaine 4 % Patch Adh..Patch) 1 patch TRANSDERMA DAILY PRN; Protocol PRN Reason: back pain Last Admin: 08/18/25 14:08 Dose: 1 patch Magnesium Hydroxide (Milk Of Magnesia 30 Ml Oral.Susp) 30 ml PO DAILY PRN PRN Reason: Constipation Methadone HCl (Methadone Hcl 20 Mg/2 Ml Oral.Conc) 130 mg PO DAILY [facility] Last Admin: 08/19/25 07:58 Dose: 130 mg Nicotine (Nicotine 21 Mg Patch.Td24) 21 mg TRANSDERMA DAILY PRN PRN Reason: smoking cessation Last Admin: 08/19/25 09:04 Dose: 21 mg Nicotine Polacrilex (Nicotine Polacrilex 2 Mg Gum) 4 mg BUCCAL Q2H PRN PRN Reason: Nicotine Cravings Last Admin: 08/18/25 19:59 Dose: 4 mg Nicotine Polacrilex (Nicotine Polacrilex Lozenge 2 Mg Lozenge) 2 mg BUCCAL Q2H PRN PRN Reason: Nicotine Cravings Last Admin: 08/19/25 09:03 Dose: 2 mg Olanzapine (Olanzapine 5 Mg Tablet) 5 mg PO TID PRN PRN Reason: agitation Last Admin: 08/19/25 09:03 Dose: 5 mg Quetiapine Fumarate (Quetiapine Fumarate 300 Mg Tablet) 300 mg PO BEDTIME [facility] Last Admin: 08/18/25 19:59 Dose: 300 mg Trazodone HCl (Trazodone Hcl 50 Mg Tablet) 50 mg PO BEDTIME MRX1 PRN PRN Reason: Insomnia Allergies Allergies Allergy/AdvReac Type Severity Reaction Status Date / Time lisdexamfetamine (From Allergy Unknown Verified 08/14/25 20:37 Vyvanse) ondansetron (From Zofran) Allergy Unknown Verified 08/14/25 20:37 phenobarbital Allergy Unknown Verified 08/14/25 20:37 Sulfa (Sulfonamide Allergy Unknown Verified 08/14/25 20:37 Antibiotics) vancomycin Allergy Unknown Verified 08/14/25 20:37 Assessment & Plan Assessment & Plan (1) Bipolar disorder: Status: Acute Code(s): F31.9 - Bipolar disorder, unspecified (2) Cocaine use disorder: Status: Acute Code(s): F14.10 - Cocaine abuse, uncomplicated (3) Opioid use disorder: Status: Acute Code(s): F11.90 - Opioid use, unspecified, uncomplicated Plan Patient is a 40 year old male with hx of MDD, cocaine use d/o, opioid use d/o, who self presented to ER due to priapism and was admitted for surgical treatment. When medically cleared, patient expressed suicidal ideation and increased depression secondary to life stressors. Plan: CV 15 minute safety checks Obtain collateral Continue home medications Encourage groups Start: lamictal 25mg PO bedtime Discharge planning 08/16: Active on unit. Feeling anxious and depressed; pt stated, I have a lot going on with my ex. I just need to focus on myself . denies SI/HI/VH/AH. attending groups. per nursing, slept 7 hours. denies side effects from starting Lamictal. continue tx plan. 08/17: Active on unit. Patient reports he is starting to feel better ; pt stated, my depression is getting better. I'm trying to not worry about what's going on outside of here . denies SI/HI/VH/AH. continue tx plan. 08/18: Active on unit. social with peers. Patient reports feeling anxious and getting back to work and life ; denies SI/HI/VH/AH. denies any issues at this time. continue tx plan. 08/19: Active on unit. social with peers. Patient reports feeling better today; pt stated, I'm still having some depression and anxious but it feels like it's getting better . patient denies SI/HI/VH/AH. He reports he plans on following up with his outpatient providers. Patient educated on: diagnosis and medication risk/benefits Reason for continued inpatient stay Substantial Risk for: stable for discharge Time Spent With Patient Time: Total time managing care of this patient today _20___ minutes.
[2025-08-19] MEDS: Hydrocortisone 1 % Cream 28.35 GM TUBE 1 APPL TOPICAL (16:40)
[2025-08-19 20:14] VITALS: BP 175/87
[2025-08-19 21:41] VITALS: BP 122/71; PULSE 102; RESP 17; TEMP 36.6; O2SAT 97
[2025-08-20 07:05] VITALS: BP 129/76; PULSE 76; RESP 18; TEMP 36.9; O2SAT 98
[2025-08-20] MEDS: methADONE HCl 20 MG/2 ML ORAL.CONC 130 MG PO (07:56)
[2025-08-20] MEDS: Naloxone HCl Nasal TAKE HOME 4 MG SPRAY 8 MG NOSTRILALT (08:15)
[2025-08-20] MEDS: Amphetamine Mixed Salts 20 MG TABLET 30 MG PO (08:15)
--- NOTE | 2025-08-20 09:26 | PM.PSYDC ---
DS: Providers Provider Date of Service: 08/20/25 Date of admission: 08/14/25 19:49 Date of discharge: 08/20/25 Primary care physician: Mayte Soliz MD Admitting clinician: Karen Griggs Attending physician on admission: Devang Olea Consults: 08/14/25 21:40 Consult to Hospitalist Routine Comment: Consulting Provider: [facility] Hospitalists Reason For Exam: admission physical Attending physician on discharge: Devang Olea Discharging clinician: Karen Griggs DS: Diagnosis Discharge Diagnosis (1) Bipolar disorder: Status: Acute (2) Cocaine use disorder: Status: Acute (3) Opioid use disorder: Status: Acute DS: Medications Discharge Medications Home Medications: Home Medications ?Medication ?Instructions ?Recorded ?Confirmed clonazepam 0.5 mg tablet (Klonopin) 0.5 mg PO TID 08/14/25 08/14/25 dextroamphetamine-amphetamine 30 1 tab PO BID 08/14/25 08/14/25 mg tablet gabapentin 300 mg capsule 300 mg PO TID 08/14/25 08/14/25 quetiapine 300 mg tablet 300 mg PO BEDTIME 08/14/25 08/14/25 methadone 130 mg PO DAILY 08/15/25 08/15/25 Previous Rx's ?Medication ?Instructions ?Recorded lamotrigine 25 mg tablet 25 mg PO BEDTIME 7 days #7 tabs 08/19/25 Mental Status Exam Mental Status Exam Narrative: Pt is alert and oriented; behavior is cooperative and calm; dressed in casual attire; mood is described as good ; eye contact appropriate; Speech is normal rate, volume and not pressured; thought process is organized; Thought content is on discharge; denies SI/HI/VH/AH. Data Data Completed and Pending Completed studies during hospitalization [Text1]: 08/15/25 07:59 Sodium 144 Potassium 4.1 Chloride 107 Carbon Dioxide 30 H Anion Gap 11 L BUN 8 L Creatinine 0.67 Estim Creat Clear Calc 189.2 Estimated GFR > 60 Random Glucose 93 Estimat Average Glucose 117 Hemoglobin A1c % 5.7 Calcium 8.6 Total Bilirubin 0.2 AST 22 ALT 26 Alkaline Phosphatase 47 Total Protein 6.3 L Albumin 3.9 Triglycerides 82 Cholesterol 123 LDL Cholesterol, Calc 72 HDL Cholesterol 35 L TSH 2.56 DS: Summary Hospital Course Hospital Course: Patient is a 40 year old male with hx of MDD, cocaine use d/o, opioid use d/o, who self presented to ER due to priapism and was admitted for surgical treatment. When medically cleared, patient expressed suicidal ideation and increased depression secondary to life stressors. Per crisis report, self-reported history of bipolar disorder. Patient presented to ER with priapism, admitted for surgical treatment. Patient reports suicidal ideation without plan. He reported several stressors that led to current presentation including relationship difficulties, housing stress, relapsed and medical difficulties. Patient report increased depression after getting in contact with his ex-fiance; Over the last 5 days depression has worsened to the point he was unable to get out of bed. Due to his depression, he waited 24 hours before going to hospital for his priapism. patient reports he uses cocaine when feeling depressed. He describes his manic episodes as being up for several days feeling exhausted body passes out . He states it is not related to cocaine use because the amount he uses is too small of an amount . History of self-harming via cutting. denies hx of SA. History of inpatient psychiatric hospitalizations. Utox positive for methadone, fentanyl and cocaine. During admission assessment, patient presents alert and oriented x3. Calm and cooperative. Patient reports feeling depressed; patient stated, I had priapism and did not go to the ER right away. I waited 20 hours before going. I told them I was depressed and just lying in bed. I'm going through stuff with my fiancee and my sister tried to commit suicide 2 weeks ago . Patient reports he has not been taking Prozac and Lamictal for the last year. Patient stated, it has been over a year since I came off of it. It used to be helpful . Patient currently denies SI/HI/VH/AH. Patient reports that he would like to be restarted on Prozac and Lamictal. Plan: CV 15 minute safety checks Obtain collateral Continue home medications Encourage groups Start: lamictal 25mg PO bedtime Discharge planning Active on unit. Feeling anxious and depressed; pt stated, I have a lot going on with my ex. I just need to focus on myself . denies SI/HI/VH/AH. attending groups. per nursing, slept 7 hours. denies side effects from starting Lamictal. continue tx plan. Active on unit. Patient reports he is starting to feel better ; pt stated, my depression is getting better. I'm trying to not worry about what's going on outside of here . denies SI/HI/VH/AH. continue tx plan. Active on unit. social with peers. Patient reports feeling anxious and getting back to work and life ; denies SI/HI/VH/AH. denies any issues at this time. continue tx plan. Active on unit. social with peers. Patient reports feeling better today; pt stated, I'm still having some depression and anxious but it feels like it's getting better . patient denies SI/HI/VH/AH. He reports he plans on following up with his outpatient providers. Status at Discharge Cognitive/behavioral status at discharge: Patient has insight and demonstrates good judgment in terms of wanting to pursue treatment. Patient has a safety plan that includes presenting to the closest ER or calling 911 if feeling unsafe. Functional status at discharge: independent ambulation Overall status at discharge: patient is back to baseline Time Spent with Patient Time attestation: Total time managing care of this patient today __20__ minutes. Time spent: Less than 30 minutes Discharge Plan Discharge Anticipated Discharge Date/Time: 08/20/25 10:00 Patient Disposition: Home, Self-Care Discharge Diagnosis: Bipolar d/o, cocaine use d/o, opioid use d/o Referrals: Shannan Knott (Therapy) [Other] - 1 Week Referral Note: *Please reach out to your therapist regarding a follow up appointment. Kamaljit Vogt (Psychiatry) [Other] - 1 Week Referral Note: *Please reach out to your psychiatrist regarding a follow up appointment. Mayte Ronquillo MD [Primary Care Provider, Internal Medicine] - 08/29/25 8:30 am Referral Note: 08-19-25 Your PCP has been notified of your upcoming discharge and will be in contact with the date and time of the follow up appt. 08-19-25 Your follow up appt has been scheduled for 08-29-25 @ 8:30am Discharge Medications: New lamotrigine 25 mg Tablet 25 mg PO BEDTIME 7 Days Qty: 7 0RF Continued quetiapine 300 mg tablet 300 mg PO BEDTIME clonazepam [Klonopin] 0.5 mg tablet 0.5 mg PO TID dextroamphetamine-amphetamine 30 mg tablet 1 tab PO BID gabapentin 300 mg capsule 300 mg PO TID methadone 130 mg PO DAILY Patient Comments: Per list from [facility]. Pt receives his methadone from [facility] in [place]. Discharge Orders: Discharge Order (Routine); Ordered 08/20/25 Ordered By: Karen Griggs Diet: Regular diet Activity on Discharge: As tolerated Stand Alone Forms: Patient Portal Discharge page, Community Support Print Language: Kinyarwanda Care Plan Goals: Maintain mood and safe behaviors Take medications as prescribed Continue to pursue sobriety Practice coping skills Continue with outpatient providers and reach out to them as needed Health Concerns: Mood stability and behaviors Sobriety Plan of Treatment: Follow up with your PCP, psychiatric provider and other outpatient providers regarding above concerns Take medications as prescribed Assessment: Patient has insight and demonstrates good judgment in terms of wanting to pursue treatment. Patient has a safety plan that includes presenting to the closest ER or calling 911 if feeling unsafe. Discharge Date/Time: 08/20/25 10:00
== END 2025-08-20 10:00 | disposition home or self-care (01) | DRG 753 ==
PROVIDERS: Psychiatry & Neurology Psychiatry; Admitting Provider Psychiatry & Neurology Psychiatry; PCP Internal Medicine; Responsible Provider Registered Nurse; Visit Provider Psychiatry & Neurology Psychiatry
DX: F31.9 Bipolar disorder, unspecified (principal); F11.20 Opioid dependence, uncomplicated; N48.30 Priapism, unspecified; F19.90 Other psychoactive substance use, unspecified, uncomplicated; F14.10 Cocaine abuse, uncomplicated; F90.9 Attention-deficit hyperactivity disorder, unspecified type; K21.9 Gastro-esophageal reflux disease without esophagitis; L30.9 Dermatitis, unspecified; F17.210 Nicotine dependence, cigarettes, uncomplicated; Z71.6 Tobacco abuse counseling; Z79.899 Other long term (current) drug therapy
CPT/HCPCS: 36415; 80053; 80061; 83036; 84443

== ENCOUNTER → 2025-08-14 19:49 | Outpatient (BNV) | payer OTHER, SELFPAY | PROVIDERS: Admitting Provider Psychiatry & Neurology Psychiatry; PCP Internal Medicine; Responsible Provider Registered Nurse; Visit Provider Registered Nurse | DX: F31.9 Bipolar disorder, unspecified (principal); F14.10 Cocaine abuse, uncomplicated; F11.90 Opioid use, unspecified, uncomplicated | CPT/HCPCS: 90792; 99231; 99232 ==

== ENCOUNTER → 2025-08-14 19:49 | Outpatient (BNV) | payer OTHER, SELFPAY | PROVIDERS: Admitting Provider Psychiatry & Neurology Psychiatry; PCP Internal Medicine; Responsible Provider Registered Nurse; Visit Provider Nurse Practitioner Family | DX: N48.30 Priapism, unspecified (principal) | CPT/HCPCS: 99221 ==